=== PATIENT | female | born 1965 | race Caucasian/White ===

== ENCOUNTER 2018-04-17 15:25 | Emergency (ER) | payer OTHER ==
[~2018-04-17] VITALS: Ht 165.1 cm; Wt 88.5 kg
[2018-04-17] MEDS ORDERED: METFORMIN HCL500 MG PO (22:42)
== END 2018-04-17 22:55 | disposition home or self-care (01) ==
LOC: ER 15:25
DX: S00.83XA Contusion of other part of head, initial encounter (principal); W18.39XA Other fall on same level, initial encounter; Y93.89 Activity, other specified; Y92.89 Other specified places as the place of occurrence of the external cause; Y99.8 Other external cause status; E11.65 Type 2 diabetes mellitus with hyperglycemia

== ENCOUNTER 2025-09-19 10:35 | Outpatient (CLI) | payer OTHER ==
[~2025-09-19 10:35] MED LIST: METFORMIN HCL500 MG PO; NABUMETONE750 MG PO
[2025-09-20] MEDS ORDERED: DICLOFENAC POTA50 MG PO (09:43)
== END 2025-09-19 10:36 | disposition home or self-care (01) ==
LOC: NUCLEAR 10:35
DX: M85.80 Other specified disorders of bone density and structure, unspecified site (principal); M81.0 Age-related osteoporosis without current pathological fracture